=== PATIENT | female | born 1985 | race Caucasian/White ===

== ENCOUNTER 2020-09-28 21:53 | Emergency (ER) | payer SELFPAY ==
[2020-09-28] MEDS ORDERED: Acetaminophen 500 MG TAB ONE (22:26)
--- NOTE | 2020-09-28 23:26 | ULT ---
Exam: Pelvic ultrasound HISTORY: Left adnexal pain. Concern for ectopic. Vaginal bleeding with clots. Nausea and vomiting. Positive p regnancy. COMPARISON: None TECHNIQUE: Multiple grayscale and color Doppler images were obtained in a transabdominal and transvag inal pelvic ultrasound. Spectral analysis of the Doppler waveforms of the ovaries were performed. FINDINGS: CERVIX: Nabothian cysts are seen in the cervix. UTERUS: Normal in size without focal abnormality. ENDOMETRIAL STRIPE: 10 mm which is within normal limits for a normal menstruating female patient. No fluid or fluid collection is seen in the endometrial canal. No free fluid is present. RIGHT OVARY: Only visualized on transabdominal imaging and demonstrates a normal sonographic appearan ce. Flow is present in the right ovary. LEFT OVARY: Only visualized on transabdominal imaging and demonstrates a normal sonographic appearan ce. Flow is present in the left ovary IMPRESSION: 1. Normal-appearing uterus and bilateral ovaries. Flow is present in each ovary. 2. No fluid collection is seen in the endometrial canal to suggest an intrauterine gestation. Finding s may be related to very early intrauterine gestation. Ectopic cannot be excluded based on sonographic evaluation.
== END 2020-09-28 23:40 | disposition home or self-care (01) ==
LOC: ERS 21:53
DX: O03.9 Complete or unspecified spontaneous abortion without complication (principal); F17.290 Nicotine dependence, other tobacco product, uncomplicated
CPT/HCPCS: 76856; 90384; 96372

== ENCOUNTER 2022-01-28 09:08 | Outpatient (CLI) | payer BC | END 2022-01-28 09:09 | disposition home or self-care (01) | LOC: BICULT 09:08 | PROVIDERS: ATTEND Family Medicine | DX: I88.8 Other nonspecific lymphadenitis (principal); R93.89 Abnormal findings on diagnostic imaging of other specified body structures | CPT/HCPCS: 76700; 76856; 93976 ==